=== PATIENT | female | born 1955 | race Caucasian/White ===

== ENCOUNTER 2017-11-28 10:40 | Emergency (ER) | payer OTHER ==
[2017-11-28 10:44] VITALS: BP 148/77
--- NOTE | 2017-11-28 11:51 | ED ---
Andres Barney Stephanie, scribed for Kenan Ruby MD on 11/28/17 at 1112 . Lower Extremity - HPI Summary HPI Summary: The pt is a 62 y/o F presenting to the ED with L knee pain that began post fall at 16:00 yesterday. Symptoms include L knee stiffness, swelling, and pain in the back of the knee. The pt says she feels like she wrenched her knee. - History of Current Complaint Chief Complaint: EDExtremityLower Stated Complaint: FAL LEFT KNEE PAIN Time Seen by Provider: 11/28/17 10:57 Hx Obtained From: Patient Mechanism Of Injury: Fall From A Standing Position Onset of Pain: Post Accident Onset/Duration: Still Present Severity Currently: Mild Pain Intensity: 4 Pain Scale Used: 0-10 Numeric Timing: Constant Associated Signs And Symptoms: Positive: Swelling, Knee Pain - posterior side, Other - L knee stiffness Aggravating Factor(s): Ambulation Alleviating Factor(s): Rest, Elevation, Ice PMH/Surg Hx/FS Hx/Imm Hx Infectious Disease History: No Infectious Disease History: Denies: Traveled Outside the [place] in Last 30 Days - Family History Known Family History: Positive: Unknown - Pt denies family history when asked. - Social History Occupation: Employed Full-time Lives: With Family Review of Systems Negative: Fever Positive: Edema - L knee, Other - Knee stiffness, pain All Other Systems Reviewed And Are Negative: Yes Physical Exam - Summary Physical Exam Summary: Appearance: The patient is well-nourished in no acute distress and in no acute pain. Skin: The skin is warm and dry and skin color reflects adequate perfusion. HEENT: The head is normocephalic and atraumatic. The pupils are equal and reactive. The conjunctivae are clear and without drainage. Nares are patent and without drainage. Mouth reveals moist mucous membranes and the throat is without erythema and exudate. The external ears are intact. The ear canals are patent and without drainage. The tympanic membranes are intact. Neck: the neck is supple with full range of motion and non-tender. There are no carotid bruits. There is no neck vein distension. Respiratory: Chest is non-tender. Lungs are clear to auscultation and breath sounds are symmetrical and equal. Cardiovascular: Heart is regular rate and rhythm. There is no murmur or rub auscultated. There is no peripheral edema and pulses are symmetrical and equal. Abdomen: The abdomen is soft and non-tender. There are normal bowel sounds heard in all four quadrants and there is no organomegaly palpated. Musculoskeletal: There is no back tenderness noted. There is good capillary refill. There is no peripheral edema or calf tenderness elicited. Tender to invert and elmer movement. Nontender to Lachmans test. Nontender to Drawer sign. Nontender Carter sign. Slight ecchymosis on inferior and medial boarder of the knee. Neurological: Patient is alert and oriented to person, place and time. The patient has symmetrical motor strength in all four extremities. Cranial nerves are grossly intact. Deep tendon reflexes are symmetrical and equal in all four extremities. Psychiatric: The patient has an appropriate affect and does not exhibit any anxiety or depression. Triage Information Reviewed: Yes Vital Signs On Initial Exam: Initial Vitals Temp Pulse Resp BP Pulse Ox 97.5 F 87 16 148/77 96 11/28/17 10:41 11/28/17 10:41 11/28/17 10:41 11/28/17 10:41 11/28/17 10:41 Vital Signs Reviewed: Yes Diagnostics - Vital Signs Vital Signs Temp Pulse Resp BP Pulse Ox 11/28/17 10:41 97.5 F 87 16 148/77 96 - Laboratory Lab Statement: Any lab studies that have been ordered have been reviewed, and results considered in the medical decision making process. Lower Extremity Course/Dx - Course Course Of Treatment: Pt is advised to use ibuprofen, wrap the L knee with an catrachito wrap and complete activities as tolerated. Return to the ED if symptoms worsen. Assessment/Plan: Ms. Mcclelland presented a day after falling and twisting her knee. It is a lot better today than yesterday but still bothering her. He exam was remarkable for mild tenderness when stressing her collateral ligaments and not much more. She was advised ice, elevation etc. - Diagnoses Provider Diagnoses: Knee sprain Discharge - Discharge Plan Condition: Stable Disposition: HOME Patient Education Materials: Knee Sprain (ED) Referrals: Cuca Palomo [Primary Care Provider] - The documentation as recorded by the Andres coyle Stephanie accurately reflects the service I personally performed and the decisions made by , Kenan Ruby MD.
== END 2017-11-28 11:21 | disposition home or self-care (01) ==
LOC: ED 10:40
DX: M25.562 Pain in left knee (principal); S83.92XA Sprain of unspecified site of left knee, initial encounter; W19.XXXA Unspecified fall, initial encounter; Y92.9 Unspecified place or not applicable
CPT/HCPCS: 99281

== ENCOUNTER 2019-05-01 19:38 | Emergency (ER) | payer OTHER ==
[2019-05-01] MEDS ORDERED: Propofol* 10 MG/ML 50 ML BTL IV PUSH ONE (20:05)
[2019-05-01] MEDS ORDERED: fentaNYL* 50 MCG/ML 2 ML VIAL (100 MCG VIAL) IV SLOW PU ONE (20:05)
[2019-05-01] MEDS ORDERED: Propofol* 10 MG/ML 20 ML BTL IV PUSH ONE (20:05)
[2019-05-01] MEDS ORDERED: Ondansetron INJ* 2 MG/ML VIAL IV ONE (20:05)
[2019-05-01] MEDS ORDERED: NS 0.9% 1000 ML** 1,000 ML IV ONE (20:05)
--- NOTE | 2019-05-01 20:06 | ED ---
Lower Extremity - HPI Summary HPI Summary: A 63 y/o F presents to ED s/p R hip dislocation onset approx 1829. 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 Patient fell onto her butt. 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 Her R hip was done by Dr. Astorga at [facility] in [place] in 1997. Today is the first time it has dislocated. Patient is not in pain at bedside. She denies CP, SOB, abd pain, LOC. She last ate around lunch time this date. She states that conscious sedation does not work for her, when given Propofol or Fentanyl works well. She is not a heavy drinker. Denies anaesthesia reaction. Patient lives in [place] now, and does not see an orthopedist yet. Allergies: Keflex. - History of Current Complaint Chief Complaint: EDHipPelvisInjury Stated Complaint: RIGHT HIP DISLOCATION PER EMS Time Seen by Provider: 05/01/19 20:00 Hx Obtained From: Patient Onset/Duration: Still Present Severity Currently: None Pain Intensity: 1 Pain Scale Used: 0-10 Numeric Timing: Constant Location: Is Discrete @ - R hip Character Of Pain: Aching Associated Signs And Symptoms: Positive: Other - neg: CP, SOB, LOC. Negative: Abdominal Pain Able to Bear Weight: No - Allergies/Home Medications Allergies/Adverse Reactions: Allergies Allergy/AdvReac Type Severity Reaction Status Date / Time cephalexin [From Keflex] Allergy Rash Verified 05/01/19 19:42 Home Medications: Home Medications Hydrochlorothiazide TAB* [Hydrodiuril TAB*] 25 mg PO DAILY 05/01/19 [History Confirmed 05/01/19] Venlafaxine HCl 75 mg PO BID 05/01/19 [History Confirmed 05/01/19] PMH/Surg Hx/FS Hx/Imm Hx Previously Healthy: No Cardiovascular History: Reports: Hx Hypertension Musculoskeletal History: Reports: Other Musculoskeletal History - hip dysplasia ; multiple hip surgeries Neurological History: Denies: Hx Dementia Infectious Disease History: No Infectious Disease History: Denies: Traveled Outside the [place] in Last 30 Days - Family History Known Family History: Positive: None - Pt denies family history when asked. - Social History Occupation: Unemployed - OTHER Lives: Alone Alcohol Use: Occasionally Hx Substance Use: No Substance Use Type: Reports: None Hx Tobacco Use: No Smoking Status (MU): Never Smoked Tobacco Review of Systems Negative: Chest Pain Negative: Shortness Of Breath Negative: Abdominal Pain Positive: Arthralgia - R hip dislocation Negative: Syncope - neg: LOC All Other Systems Reviewed And Are Negative: Yes Physical Exam - Summary Physical Exam Summary: Appearance: Well appearing, no pain distress Skin: warm, dry, reflects adequate perfusion Head/face: normal Eyes: EOMI, LORI ENT: mucous membranes moist Neck: supple, non-tender Respiratory: CTA, breath sounds present Cardiovascular: RRR, pulses symmetrical Abdomen: non-tender, soft Bowel Sounds: present Musculoskeletal: RLE is shortened and externally rotated; pain with manipulation of leg. Neuro: normal, sensory motor intact, A&Ox3 Triage Information Reviewed: Yes Vital Signs On Initial Exam: Initial Vitals Temp Pulse Resp BP Pulse Ox 98.5 F 72 16 146/83 96 05/01/19 19:39 05/01/19 19:39 05/01/19 19:39 05/01/19 19:39 05/01/19 19:39 Vital Signs Reviewed: Yes Procedures - Procedure Summary Procedure Summary: Procedural sedation: Indication is right prosthetic hip dislocation Description: The patient was formally consented and a timeout was performed. She was placed on full cardiopulmonary monitoring. The patient has been NPO > 8hrs. she was placed on full cardiopulmonary monitoring including end-tidal CO2 and on nasal cannula oxygen. She was given 50 g of fentanyl prior to the procedure for discomfort and then was sedated with 1 mg/kg of IV propofol at 70 mg total. This provided adequate analgesia/anesthesia for a quick reduction. Reduction/sedation time was 1 minute. She tolerated this well and recovered uneventfully without complication. - Joint Reduction R Hip Joint Reduction Site: hip (R) Conscious Sedation: Yes Reduction Attempts: 1 Post Joint Reduction Film: joint reduced Diagnostics - Vital Signs Vital Signs Temp Pulse Resp BP Pulse Ox 05/01/19 19:39 98.5 F 72 16 146/83 96 - Laboratory Lab Statement: Any lab studies that have been ordered have been reviewed, and results considered in the medical decision making process. - Radiology R HIP - POST RED Radiology Interpretation Completed By: ED Physician Summary of Radiographic Findings: Reduction of R prosthetic hip displacement. Lower Extremity Course/Dx - Course Course Of Treatment: Nurse's note reviewed. Reduced hip under sedation quickly. Post reduction film shows adequate reduction. Patient ambulatory without difficulty. - Diagnoses Provider Diagnoses: Dislocation of internal right hip prosthesis, initial encounter Discharge - Sign-Out/Discharge Documenting (check all that apply): Patient Departure Patient Received Moderate/Deep Sedation with Procedure: Yes - Discharge Plan Condition: Improved Disposition: HOME Patient Education Materials: Moderate Sedation (ED), Hip Dislocation (ED) Referrals: Ирина Hess MD [Primary Care Provider] - Additional Instructions: No alcohol or sedating medications. Call on Saturday to follow-up with your orthopedic surgeon. No strenuous activity for 3 days. Tylenol, ibuprofen as needed for discomfort. Return if worse, new symptoms or other concerns. - Billing Disposition and Condition Condition: IMPROVED Disposition: Home - Attestation Statements Document Initiated by Kelsey: Yes Documenting Scribe: Henry Faustin Provider For Whom Leighibe is Documenting (Include Credential): Dr. Ian Oneill MD Scribe Attestation: Henry Barney scribed for Dr. Ian Oneill MD on 05/01/19 at 2150. Scribe Documentation Reviewed: Yes Provider Attestation: The documentation as recorded by the Henry coyle accurately reflects the service I personally performed and the decisions made by , Dr. Ian Oneill MD Status of Scribe Document: Viewed
[2019-05-01] MEDS ORDERED: Propofol* 500 MG/50 ML BTL ONE (20:18)
[2019-05-01 21:18] VITALS: BP 124/86
--- NOTE | 2019-05-02 13:38 | PN ---
Progress Note - Progress Note Date of Service: 05/01/19 Note: Called pt. today at 1335 and discussed results. She notes she recently moved to the area and her orthopedic sx is in [place]. Pt. would like to f.u with ortho. in [facility]. INFO provided and she will call on Saturday for f.u apt. IMPRESSION: 1. STATUS POST REDUCTION OF THE RIGHT FEMORAL PROSTHESES. THE PROSTHESES ARE IN NORMAL ALIGNMENT. 2. THERE IS A FRACTURE OF THE RIGHT ACETABULUM WHICH IS LIKELY CHRONIC. 3. ONE OF THE LEFT ACETABULAR SCREWS HAS BACKED OUT. 4. RECOMMEND ORTHOPEDIC FOLLOW-UP. R3
== END 2019-05-01 21:14 | disposition home or self-care (01) ==
LOC: ED 19:38
DX: T84.020A Dislocation of internal right hip prosthesis, initial encounter (principal); I10 Essential (primary) hypertension; X50.0XXA Overexertion from strenuous movement or load, initial encounter; Y92.9 Unspecified place or not applicable
CPT/HCPCS: 27265; 72170; 96374; 96375; 99284; J2405; J2704; J3010

== ENCOUNTER 2019-05-07 18:35 | Emergency (ER) | payer OTHER ==
--- NOTE | 2019-05-07 19:40 | ED ---
Lower Extremity - HPI Summary HPI Summary: This patient is a 63 year old F brought in by EMS to [facility] with a chief complaint of a possible R hip dislocation while walking her dog. She states that she has had her hip replaced on Saturday05/01/19. She was aware and was attempting to be careful while walking her dog. She has a follow up with an Orthopedic on 05/18/19. Pt is able to move her legs but has pain with ROM. She rates the pain a 2/10 in severity. She stated that walking and weight bearing. She denies any numbness or tingling in her extremities. - History of Current Complaint Chief Complaint: EDHipPelvisInjury Stated Complaint: RIGHT HIP DISLOCATION PER EMS Time Seen by Provider: 05/07/19 19:19 Hx Obtained From: Patient Mechanism Of Injury: Other - walking her dog Onset of Pain: Immediate Onset/Duration: Hours Severity Initially: Mild Severity Currently: Mild Pain Intensity: 2 Pain Scale Used: 0-10 Numeric Timing: Constant Location: Other - R hip Associated Signs And Symptoms: Positive: Weakness, Other - Pain increased with weightbearing and movement, Decreased ROM Aggravating Factor(s): Movement, Weight Bearing Alleviating Factor(s): Rest Related History: Other - Hx 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 in her L hip, Hx of Hip replacement surgery - Allergies/Home Medications Allergies/Adverse Reactions: Allergies Allergy/AdvReac Type Severity Reaction Status Date / Time cephalexin [From Keflex] Allergy Rash Verified 05/01/19 19:42 PMH/Surg Hx/FS Hx/Imm Hx Previously Healthy: No Cardiovascular History: Reports: Hx Hypertension Musculoskeletal History: Reports: Other Musculoskeletal History - hip dysplasia ; multiple hip surgeries Neurological History: Denies: Hx Dementia Infectious Disease History: No Infectious Disease History: Denies: Traveled Outside the [place] in Last 30 Days - Family History Known Family History: Negative: Hypertension, Diabetes - Social History Alcohol Use: Occasionally Hx Substance Use: No Substance Use Type: Reports: None Hx Tobacco Use: No Smoking Status (MU): Former Smoker Review of Systems Positive: Decreased ROM, Other - R hip pain, Increased pain with ROM and weightbearing Positive: Weakness - R hip All Other Systems Reviewed And Are Negative: Yes Physical Exam - Summary Physical Exam Summary: VITAL SIGNS: Reviewed. GENERAL: Patient is a well-developed and nourished female who is lying comfortable in the stretcher. Patient is not in any acute respiratory distress. HEAD AND FACE: No signs of trauma. No ecchymosis, hematomas or skull depressions. No sinus tenderness. EYES: PERRLA, EOMI x 2, No injected conjunctiva, no nystagmus. EARS: Hearing grossly intact. Ear canals and tympanic membranes are within normal limits. MOUTH: Oropharynx within normal limits. NECK: Supple, trachea is midline, no adenopathy, no JVD, no carotid bruit, no c- spine tenderness, neck with full ROM CHEST: Symmetric, no tenderness at palpation LUNGS: Clear to auscultation bilaterally. No wheezing or crackles. CVS: Regular rate and rhythm, S1 and S2 present, no murmurs or gallops appreciated. ABDOMEN: Soft, non-tender. No signs of distention. No rebound no guarding, and no masses palpated. Bowel sounds are normal. EXTREMITIES: Mild shortening of the RLE, external rotation of the RLE, no edema , no cyanosis or clubbing. NEURO: Alert and oriented x 3. No acute neurological deficits. Speech is normal and follows commands. SKIN: Dry and warm Triage Information Reviewed: Yes Vital Signs On Initial Exam: Initial Vitals Pulse BP Pulse Ox 79 167/103 90 05/07/19 18:41 05/07/19 18:41 05/07/19 18:41 Vital Signs Reviewed: Yes Procedures - Joint Reduction Right Joint Reduction Site: hip (R) Conscious Sedation: No Reduction Attempts: 1 Post Joint Reduction Film: Pt will receive another hip x-ray to confirm the reduction. Diagnostics - Vital Signs Vital Signs Temp Pulse Resp BP Pulse Ox 05/07/19 18:43 70 94 05/07/19 18:42 98.8 F 72 18 167/103 95 05/07/19 18:41 79 167/103 90 - Laboratory Lab Statement: Any lab studies that have been ordered have been reviewed, and results considered in the medical decision making process. - Radiology R hip X-Ray Radiology Interpretation Completed By: ED Physician Summary of Radiographic Findings: Superior dislocation of the R hip. Pending offical review. R Hip X-Ray post reduction Radiology Interpretation Completed By: ED Physician Summary of Radiographic Findings: Post-reduction hip X-Ray found the hip had been successfully reduced and she suffers from no hip Fx. Pending offical review. Re-Evaluation - Re-Evaluation First Eval Re-Evaluation Time: 21:00 Change: Unchanged Comment: hip reduced Second Eval Re-Evaluation Time: 21:45 Change: Improved Comment: Pt was informed of her new hip x-ray post reduction and discharged home with a knee mobilizer and instructions to follow up with her orthopedic at her next appointment. Lower Extremity Course/Dx - Course Course Of Treatment: This patient is a 63 year old F brought in by EMS to [facility] with a chief complaint of a possible R hip dislocation while walking her dog. She states that she has had her hip replaced on Saturday05/01/19. Upon her PE she was found to exhibit Mild shortening of the RLE and external rotation of the RLE. She received a R hip X-Ray which shows superior dislocation of the R hip. The pt was informed of the findings and given a reduction treatment without complications. She received another X-Ray to view the effects of the treatment which found the hip had been successfully reduced and she suffered no Hip Fx. The pt will be discharged home with a knee mobilizer and instructed to follow up with her orthopedic at her next scheduled appointment and to return to the ED with any new or worsening symptoms. - Diagnoses Provider Diagnoses: Dislocation of right hip Discharge - Sign-Out/Discharge Documenting (check all that apply): Patient Departure - discharge Patient Received Moderate/Deep Sedation with Procedure: No - Discharge Plan Condition: Stable Disposition: HOME Patient Education Materials: Hip Dislocation (ED) Referrals: Ирина Hess MD [Primary Care Provider] - Additional Instructions: Wear knee mobilizer and follow up with your orthopedic at your next appointment. Please return to the emergency department with any new or worsening symptoms. - Attestation Statements Document Initiated by Scribe: Yes Documenting Scribe: Lyndon Easton Provider For Whom Kelsey is Documenting (Include Credential): Ngozi Hawley MD Scribe Attestation: Lyndon Barney, pramodibed for Ngozi Hawley MD on 05/07/19 at 8314. Status of Scribe Document: Ready
[2019-05-07] MEDS ORDERED: Propofol* 10 MG/ML 20 ML BTL IV PUSH ONE (20:29)
[2019-05-07] MEDS ORDERED: Propofol* 500 MG/50 ML BTL ONE (20:43)
--- NOTE | 2019-05-07 20:54 | ED ---
Progress - Progress Note Progress Note: I was asked to come to the bedside by Dr. Sharma to provide procedural sedation. PROCEDURE NOTE PROCEDURE NAME: PROCEDURAL SEDATION INDICATION: HIP DISLOCATION SEDATION PROVIDER: ANIKA DIAZ MD PROCEDURALIST: DR SHARMA DETAILS: I screened the patient including physical exam including heart and lung exam, also airway examination. She had no contraindications to emergency department procedural sedation. I reviewed the medical record, she successfully had propofol sedation last week. She received a total of 100 mg of IV propofol for adequate procedural sedation. She emerged uneventfully from sedation. Dr. Sharma's reduction was successful. Re-Evaluation - Re-Evaluation First Eval Re-Evaluation Time: 21:00 Change: Unchanged Comment: hip reduced Second Eval Re-Evaluation Time: 21:45 Change: Improved Comment: Pt was informed of her new hip x-ray post reduction and discharged home with a knee mobilizer and instructions to follow up with her orthopedic at her next appointment. Course/Dx - Course Course Of Treatment: This patient is a 63 year old F brought in by EMS to [facility] with a chief complaint of a possible R hip dislocation while walking her dog. She states that she has had her hip replaced on Saturday05/01/19. Upon her PE she was found to exhibit Mild shortening of the RLE and external rotation of the RLE. She received a R hip X-Ray which shows superior dislocation of the R hip. The pt was informed of the findings and given a - Diagnoses Provider Diagnoses: Dislocation of right hip Discharge - Sign-Out/Discharge Documenting (check all that apply): Patient Departure Patient Received Moderate/Deep Sedation with Procedure: Yes - Discharge Plan Condition: Stable Disposition: HOME Patient Education Materials: Hip Dislocation (ED) Referrals: Ирина Hess MD [Primary Care Provider] - Additional Instructions: Wear knee mobilizer and follow up with your orthopedic at your next appointment. Please return to the emergency department with any new or worsening symptoms. - Billing Disposition and Condition Condition: STABLE Disposition: Home
[2019-05-07 21:59] VITALS: BP 131/79
== END 2019-05-07 22:15 | disposition home or self-care (01) ==
LOC: ED 18:35
DX: T84.020A Dislocation of internal right hip prosthesis, initial encounter (principal); M84.454A Pathological fracture, pelvis, initial encounter for fracture; Z88.1 Allergy status to other antibiotic agents; Z87.891 Personal history of nicotine dependence
CPT/HCPCS: 27252; 99156; 99283; J2704

== ENCOUNTER 2019-05-13 19:58 | Emergency (ER) | payer OTHER ==
--- NOTE | 2019-05-13 20:23 | ED ---
Lower Extremity - HPI Summary HPI Summary: A 63 y/o female brought in [facility] presents to [facility] with a chief complaint of possibly "dislocating her right hip" pain post fall today. She reports that she hit her head but denies LOC. 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 She reports seeing tai Loomis, who reportedly ordered CTs for the patient. The patient reports that she took off her brace today in order to drive. She took Advil this morning but denies taking Coumadin. She last ate at 17:00 today. - History of Current Complaint Chief Complaint: EDExtremityLower Stated Complaint: FALL PER EMS Time Seen by Provider: 05/13/19 20:10 Hx Obtained From: Patient, EMS Mechanism Of Injury: Fall From A Standing Position Onset of Pain: Immediate, Post Accident, Prior to Arrival Onset/Duration: Still Present Severity Initially: Mild Severity Currently: None Pain Intensity: 0 Pain Scale Used: 0-10 Numeric Timing: Constant, Lasting Minutes Location: Is Discrete @ - right thigh Character Of Pain: Unable To Describe Associated Signs And Symptoms: Negative: Fever Aggravating Factor(s): Nothing Alleviating Factor(s): Nothing - Allergies/Home Medications Allergies/Adverse Reactions: Allergies Allergy/AdvReac Type Severity Reaction Status Date / Time cephalexin [From Keflex] Allergy Rash Verified 05/01/19 19:42 PMH/Surg Hx/FS Hx/Imm Hx Cardiovascular History: Reports: Hx Hypertension Musculoskeletal History: Reports: Other Musculoskeletal History - hip dysplasia ; multiple hip surgeries Neurological History: Denies: Hx Dementia Infectious Disease History: No Infectious Disease History: Denies: Traveled Outside the US in Last 30 Days - Family History Known Family History: Positive: Unknown - Pt denies family history when asked. Negative: Hypertension, Diabetes - Social History Alcohol Use: Occasionally Hx Substance Use: No Substance Use Type: Reports: None Hx Tobacco Use: No Smoking Status (MU): Former Smoker Review of Systems Negative: Fever Positive: Other - positive: possibly dislocating right hip post fall today All Other Systems Reviewed And Are Negative: Yes Physical Exam - Summary Physical Exam Summary: VITAL SIGNS: Reviewed. GENERAL: Patient is a well-developed and nourished FEMALE who is lying comfortable in the stretcher. Patient is not in any acute respiratory distress. HEAD AND FACE: No signs of trauma. No ecchymosis, hematomas or skull depressions. No sinus tenderness. EYES: PERRLA, EOMI x 2, No injected conjunctiva, no nystagmus. EARS: Hearing grossly intact. Ear canals and tympanic membranes are within normal limits. MOUTH: Oropharynx within normal limits. NECK: Supple, trachea is midline, no adenopathy, no JVD, no carotid bruit, no c- spine tenderness, neck with full ROM CHEST: Symmetric, no tenderness at palpation LUNGS: Clear to auscultation bilaterally. No wheezing or crackles. CVS: Regular rate and rhythm, S1 and S2 present, no murmurs or gallops appreciated. ABDOMEN: Soft, non-tender. No signs of distention. No rebound no guarding, and no masses palpated. Bowel sounds are normal. EXTREMITIES: RLE is short and externally rotated. NEURO: Alert and oriented x 3. No acute neurological deficits. Speech is normal and follows commands. SKIN: Dry and warm Triage Information Reviewed: Yes Vital Signs On Initial Exam: Initial Vitals Temp Pulse Resp BP Pulse Ox 98.0 F 76 18 149/99 99 05/13/19 20:04 05/13/19 20:04 05/13/19 20:04 05/13/19 20:04 05/13/19 20:04 Vital Signs Reviewed: Yes Procedures - Procedure Summary Procedure Summary: Moderate sedation procedure: Pt consent given. Followed protocol Pt was given Fentanyl 100mcg and Versed 5mg moderate sedation accomplished Vital signs were fine, no reversal agent used, procedure length 15 min. Right hip reduction procedure: Right hip reduction under moderate sedation right hip reduced neurovascularly intact pre and post reduction Diagnostics - Vital Signs Vital Signs Temp Pulse Resp BP Pulse Ox 05/13/19 20:04 98.0 F 76 18 149/99 99 - Laboratory Lab Statement: Any lab studies that have been ordered have been reviewed, and results considered in the medical decision making process. - Radiology Hip/pelvis x-ray Radiology Interpretation Completed By: ED Physician Summary of Radiographic Findings: Superior dislocation of right hip. Pending official imaging report. hip x-ray Radiology Interpretation Completed By: ED Physician Summary of Radiographic Findings: Post reduction, good alignment, no fracture. Pending official imaging report. Re-Evaluation - Re-Evaluation First Eval Re-Evaluation Time: 21:17 Lower Extremity Course/Dx - Course Course Of Treatment: A 63 y/o female brought in by [facility] ambulance presents to [facility] with a chief complaint of possibly "dislocating her right hip" pain post fall today. The physical exam revealed RLE is short and externally rotated. Hip/ pelvis x-ray showed Superior dislocation of right hip. Right hip reduction procedure performed under moderate sedation (100mcg Fentanyl and 5mg Versed). Hip x-ray showed Post reduction, good alignment, no fracture. The patient will be discharged and follow up with her PCP and tai Loomis. The patient is agreeable with this plan. - Diagnoses Provider Diagnoses: Dislocation, hip Discharge - Sign-Out/Discharge Documenting (check all that apply): Patient Departure - DC Patient Received Moderate/Deep Sedation with Procedure: Yes - Discharge Plan Condition: Stable Disposition: HOME Patient Education Materials: Moderate Sedation (ED), Hip Dislocation (ED) Referrals: Ирина Hess MD [Primary Care Provider] - (2-3 days) Sophia Valles MD [Medical Doctor] - Additional Instructions: Please wear your knee immobilizer. PLEASE RETURN TO THE ED IMMEDIATELY FOR WORSENING OR CONCERNING SYMPTOMS. - Billing Disposition and Condition Condition: STABLE Disposition: Home - Attestation Statements Document Initiated by Scribe: Yes Documenting Scribe: Ken Estevez Provider For Whom Kelsey is Documenting (Include Credential): Ngozi Hawley MD Scribe Attestation: Ken Barney, scribed for Ngzoi Hawley MD on 05/14/19 at 0638. Scribe Documentation Reviewed: Yes Provider Attestation: The documentation as recorded by the Ken coyle accurately reflects the service I personally performed and the decisions made by , Ngozi Hawley MD Status of Scribe Document: Viewed
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
[2019-05-13] MEDS ORDERED: Midazolam* 1 MG/ML 5 ML VIAL (5 MG) IV SLOW PU ONE (20:49)
[2019-05-13] MEDS ORDERED: NS 0.9% 1000 ML** 1,000 ML IV ONE (20:49)
[2019-05-13] MEDS ORDERED: fentaNYL* 50 MCG/ML 2 ML VIAL (100 MCG VIAL) IV SLOW PU ONE (20:49)
[2019-05-13 21:40] VITALS: BP 104/69
== END 2019-05-13 22:01 | disposition home or self-care (01) ==
LOC: ED 19:58
DX: T84.020A Dislocation of internal right hip prosthesis, initial encounter (principal); W19.XXXA Unspecified fall, initial encounter; Y92.9 Unspecified place or not applicable; M84.454D Pathological fracture, pelvis, subsequent encounter for fracture with routine healing; Z88.1 Allergy status to other antibiotic agents; Z87.891 Personal history of nicotine dependence
CPT/HCPCS: 27252; 99156; 99285; J2250; J3010

== ENCOUNTER 2019-05-17 16:10 | Emergency (ER) | payer OTHER ==
[2019-05-17] MEDS ORDERED: fentaNYL* 50 MCG/ML 2 ML VIAL (100 MCG VIAL) IV ONE (20:03)
[2019-05-17] MEDS ORDERED: fentaNYL* 50 MCG/ML 2 ML VIAL (100 MCG VIAL) IV SLOW PU ONE (20:04)
--- NOTE | 2019-05-17 20:20 | ED ---
Lower Extremity - HPI Summary HPI Summary: Patient with history of recurrent right hip this location complains of possible recurrence after pivoting on her right leg. Denies pain, just states she heard a pop, and it feels funny. Denies any other pain, injury or symptoms. - History of Current Complaint Chief Complaint: EDHipPelvisInjury Stated Complaint: RT HIP DISLOCATION PER EMS Time Seen by Provider: 05/17/19 17:37 Hx Obtained From: Patient Mechanism Of Injury: Twisted Severity Currently: None Pain Intensity: 0 Pain Scale Used: 0-10 Numeric Able to Bear Weight: No - Allergies/Home Medications Allergies/Adverse Reactions: Allergies Allergy/AdvReac Type Severity Reaction Status Date / Time cephalexin [From Keflex] Allergy Rash Verified 05/17/19 16:19 PMH/Surg Hx/FS Hx/Imm Hx Endocrine/Hematology History: Denies: Hx Anticoagulant Therapy Cardiovascular History: Reports: Hx Hypertension History: Denies: Hx Dialysis Musculoskeletal History: Reports: Other Musculoskeletal History - hip dysplasia ; multiple hip surgeries Sensory History: Denies: Hx Eye Prosthesis Opthamlomology History: Denies: Hx Legally Blind EENT History: Denies: Hx Deafness Neurological History: Denies: Hx Dementia Psychiatric History: Denies: Hx Autism Infectious Disease History: No Infectious Disease History: Denies: Traveled Outside the US in Last 30 Days - Family History Known Family History: Positive: None - Pt denies family history when asked., Unknown - Pt denies family history when asked. Negative: Hypertension, Diabetes - Social History Alcohol Use: Occasionally Hx Substance Use: No Substance Use Type: Reports: None Hx Tobacco Use: No Smoking Status (MU): Former Smoker Review of Systems Constitutional: Negative Eyes: Negative ENT: Negative Cardiovascular: Negative Respiratory: Negative Gastrointestinal: Negative Genitourinary: Negative Musculoskeletal: Other Skin: Negative Neurological: Negative Psychological: Normal All Other Systems Reviewed And Are Negative: Yes Physical Exam - Summary Physical Exam Summary: Right lower extremity externally rotated, same length as left lower extremity. Apparent deformity to right hip. Triage Information Reviewed: Yes Vital Signs On Initial Exam: Initial Vitals Pulse Resp Pulse Ox 76 20 97 05/17/19 16:14 05/17/19 16:14 05/17/19 16:14 Vital Signs Reviewed: Yes Appearance: Positive: Well-Appearing Skin: Positive: Warm Head/Face: Positive: Normal Head/Face Inspection Eyes: Positive: Normal Neck: Positive: Supple Respiratory/Lung Sounds: Positive: Clear to Auscultation Cardiovascular: Positive: Normal Abdomen Description: Positive: Nontender Musculoskeletal: Positive: Normal Neurological: Positive: Normal Psychiatric: Positive: Normal AVPU Assessment: Alert - [place] Coma Scale Best Eye Response: 4 - Spontaneous Best Motor Response: 6 - Obeys Commands Best Verbal Response: 5 - Oriented Coma Scale Total: 15 Diagnostics - Vital Signs Vital Signs Temp Pulse Resp BP Pulse Ox 05/17/19 20:16 16 05/17/19 17:00 24 05/17/19 16:45 76 18 136/99 98 05/17/19 16:16 72 20 96 05/17/19 16:15 98.7 F 76 16 141/90 96 05/17/19 16:14 76 20 97 - Laboratory Lab Statement: Any lab studies that have been ordered have been reviewed, and results considered in the medical decision making process. Lower Extremity Course/Dx - Course Course Of Treatment: Patient with history of recurrent right hip this location complains of possible recurrence after pivoting on her right leg. Denies pain, just states she heard a pop, and it feels funny. Denies any other pain, injury or symptoms. Physical exam:Right lower extremity externally rotated, same length as left lower extremity. Apparent deformity to right hip. Vital signs within normal limits. X-ray confirms right hip dislocation. Right hip reduced by Dr. Hawley with 100 mcg of fentanyl. Patient refused post reduction x-ray. Patient has orthopedist in [place]. Advised to follow-up with orthopedic surgeon. Patient understands and approves of plan. - Diagnoses Provider Diagnoses: Hip dislocation, right Discharge - Sign-Out/Discharge Documenting (check all that apply): Patient Departure Patient Received Moderate/Deep Sedation with Procedure: No - Discharge Plan Condition: Stable Disposition: HOME Patient Education Materials: Hip Dislocation (ED) Referrals: Ирина Hess MD [Primary Care Provider] - Ish Wilson MD [Medical Doctor] - Additional Instructions: Follow-up with your orthopedic surgeon or with Dr. Wilson for further evaluation of recurrent hip dislocation. - Billing Disposition and Condition Condition: STABLE Disposition: Home
[2019-05-17 20:46] VITALS: BP 127/84
== END 2019-05-17 20:45 | disposition home or self-care (01) ==
LOC: ED 16:10
DX: S73.004A Unspecified dislocation of right hip, initial encounter (principal); M97.01XA Periprosthetic fracture around internal prosthetic right hip joint, initial encounter; X50.9XXA Other and unspecified overexertion or strenuous movements or postures, initial encounter; Z87.891 Personal history of nicotine dependence; Z96.641 Presence of right artificial hip joint
CPT/HCPCS: 96374; 96375; 99282; J3010

== ENCOUNTER 2019-05-26 12:30 | Emergency (ER) | payer OTHER ==
[2019-05-26] MEDS ORDERED: fentaNYL* 50 MCG/ML 2 ML VIAL (100 MCG VIAL) IV SLOW PU ONE (14:44)
[2019-05-26 15:10] VITALS: BP 141/91
--- NOTE | 2019-06-01 07:06 | ED ---
Lower Extremity - HPI Summary HPI Summary: Patient is a 63-year-old female presenting to the ED with a right hip dislocation. She endorses this is her fifth hip dislocation, total. This is her third dislocation to the right side. She is status post hip replacement several years ago. She states she is followed by an orthopedic physician, however has not been able to get in with them until 2 weeks from now. She states last tetanus occurred approximately 2 weeks ago, they were able to reduce this with a small dose of fentanyl. She is endorsing mild amount of pain. She states she was doing the dishes and just stepped on this wrong which caused the hip to displace. She denies any other concerns complaints. Denies any numbness or tingling, color temperature changes to the ipsilateral leg. - History of Current Complaint Chief Complaint: EDExtremityLower Stated Complaint: RIGHT HIP PAIN PER PT Time Seen by Provider: 05/26/19 12:39 Hx Obtained From: Patient Mechanism Of Injury: Unknown Onset of Pain: Minutes Onset/Duration: Minutes Severity Initially: Mild Severity Currently: Mild Pain Intensity: 0 Pain Scale Used: 0-10 Numeric Timing: Constant Location: Is Discrete @ - right hip Character Of Pain: Aching Associated Signs And Symptoms: Negative: Swelling, Redness, Bruising Aggravating Factor(s): Standing, Ambulation, Movement, Weight Bearing Able to Bear Weight: No - Risk Factors Gout Risk Factors: Negative DVT Risk Factors: Negative Septic Arthritis Risk Factor: Negative - Allergies/Home Medications Allergies/Adverse Reactions: Allergies Allergy/AdvReac Type Severity Reaction Status Date / Time cephalexin [From Keflex] Allergy Rash Verified 05/26/19 12:36 PMH/Surg Hx/FS Hx/Imm Hx Previously Healthy: Yes Endocrine/Hematology History: Denies: Hx Anticoagulant Therapy Cardiovascular History: Reports: Hx Hypertension History: Denies: Hx Dialysis Musculoskeletal History: Reports: Other Musculoskeletal History - hip dysplasia ; multiple hip surgeries Sensory History: Denies: Hx Eye Prosthesis, Hx Legally Blind, Hx Deafness Opthamlomology History: Denies: Hx Eye Prosthesis, Hx Legally Blind Neurological History: Denies: Hx Dementia Psychiatric History: Denies: Hx Autism - Surgical History Surgery Procedure, Year, and Place: BILAT HIP REPLACEMENTS - Immunization History Hx Pertussis Vaccination: No Immunizations Up to Date: Yes Infectious Disease History: No Infectious Disease History: Denies: Traveled Outside the [place] in Last 30 Days - Family History Known Family History: Positive: None - Pt denies family history when asked., Unknown - Pt denies family history when asked. Negative: Hypertension, Diabetes - Social History Occupation: Unemployed Lives: With Family Alcohol Use: Occasionally Hx Substance Use: No Substance Use Type: Reports: None Hx Tobacco Use: No Smoking Status (MU): Former Smoker Review of Systems Negative: Fever, Chills, Fatigue, Skin Diaphoresis Negative: Palpitations, Chest Pain Negative: Shortness Of Breath, Cough Genitourinary: Negative Positive: no symptoms reported, see HPI Positive: Arthralgia - right hip dislocation. Negative: Myalgia Skin: Negative Neurological: Negative All Other Systems Reviewed And Are Negative: Yes Physical Exam Triage Information Reviewed: Yes Vital Signs On Initial Exam: Initial Vitals Temp Pulse Resp BP Pulse Ox 98.3 F 68 16 154/89 95 05/26/19 12:33 05/26/19 12:33 05/26/19 12:33 05/26/19 12:33 05/26/19 12:33 Vital Signs Reviewed: Yes Appearance: Positive: Well-Appearing, Well-Nourished Skin: Positive: Skin Color Reflects Adequate Perfusion Head/Face: Positive: Normal Head/Face Inspection Eyes: Positive: EOMI, Conjunctiva Clear Neck: Positive: Supple Respiratory/Lung Sounds: Positive: Clear to Auscultation, Breath Sounds Present Cardiovascular: Positive: RRR, Pulses are Symmetrical in both Upper and Lower Extremities Musculoskeletal: Positive: Pain @ - right hip - obvious dislocation Neurological: Positive: Alert, Oriented to Person Place, Time, Speech Normal Psychiatric: Positive: Affect/Mood Appropriate Diagnostics - Vital Signs Vital Signs Temp Pulse Resp BP Pulse Ox 05/26/19 15:15 98 F 69 16 141/91 100 05/26/19 15:08 141/91 05/26/19 15:00 69 100 05/26/19 14:57 18 05/26/19 14:52 75 97 05/26/19 13:06 70 142/84 97 05/26/19 13:00 69 97 05/26/19 12:38 68 95 05/26/19 12:36 68 154/89 96 05/26/19 12:33 98.3 F 68 16 154/89 95 - Laboratory Lab Statement: Any lab studies that have been ordered have been reviewed, and results considered in the medical decision making process. Lower Extremity Course/Dx - Course Course Of Treatment: During this course treatment, the patient's evaluated for right hip dislocation. X-ray obtained which shows dislocation of the right hip. Fentanyl 50 mg given. Traction to the right foot with a pole and this reduced the hip. This was confirmed by patient and the ability to flex and extend at the hip. She is declining follow-up x-ray. She will continue to f/u with her ortho in [place]. - Diagnoses Provider Diagnoses: Hip dislocation, right Discharge - Sign-Out/Discharge Documenting (check all that apply): Patient Departure Patient Received Moderate/Deep Sedation with Procedure: No - Discharge Plan Condition: Stable Disposition: HOME Referrals: Ирина Hess MD [Primary Care Provider] - Additional Instructions: Please follow up with orthopedics - Billing Disposition and Condition Condition: STABLE Disposition: Home
== END 2019-05-26 15:15 | disposition home or self-care (01) ==
LOC: ED 12:30
DX: S73.004A Unspecified dislocation of right hip, initial encounter (principal); X50.9XXA Other and unspecified overexertion or strenuous movements or postures, initial encounter; Y93.G1 Activity, food preparation and clean up; I10 Essential (primary) hypertension; Z96.643 Presence of artificial hip joint, bilateral; Z88.1 Allergy status to other antibiotic agents; Z87.891 Personal history of nicotine dependence
CPT/HCPCS: 27265; 96374; 99282; J3010

== ENCOUNTER 2020-02-01 13:09 | Emergency (ER) | payer OTHER ==
--- NOTE | 2020-02-01 13:15 | ED ---
Lower Extremity - HPI Summary HPI Summary: Patient is a 64 y/o F presenting to the ED via EMS for a chief complaint of right hip dislocation that occurred on 02/01/20. Patient has a history of dislocations in the same hip, having had 19 dislocations of the right hip prior to this current dislocation. - History of Current Complaint Stated Complaint: R HIP DISLOCATION PER EMS Time Seen by Provider: 02/01/20 13:11 Hx Obtained From: Patient Severity Initially: Mild Severity Currently: None Pain Intensity: 0 Pain Scale Used: 0-10 Numeric Timing: Constant Location: Is Discrete @ - Right hip - Allergies/Home Medications Allergies/Adverse Reactions: Allergies Allergy/AdvReac Type Severity Reaction Status Date / Time cephalexin [From Keflex] Allergy Rash Verified 05/26/19 12:36 Home Medications: Home Medications Hydrochlorothiazide TAB* [Hydrodiuril TAB*] 25 mg PO DAILY 05/01/19 [History Confirmed 05/26/19] Venlafaxine HCl 75 mg PO BID 05/01/19 [History Confirmed 05/26/19] PMH/Surg Hx/FS Hx/Imm Hx Previously Healthy: Yes Endocrine/Hematology History: Denies: Hx Anticoagulant Therapy Cardiovascular History: Reports: Hx Hypertension History: Denies: Hx Dialysis Musculoskeletal History: Reports: Other Musculoskeletal History - hip dysplasia ; multiple hip surgeries Sensory History: Denies: Hx Eye Prosthesis, Hx Legally Blind Opthamlomology History: Denies: Hx Eye Prosthesis, Hx Legally Blind Neurological History: Denies: Hx Dementia Psychiatric History: Denies: Hx Autism - Surgical History Surgery Procedure, Year, and Place: BILAT HIP REPLACEMENTS Infectious Disease History: No Infectious Disease History: Denies: Traveled Outside the [place] in Last 30 Days - Family History Known Family History: Positive: None - Pt denies family history when asked., Unknown - Pt denies family history when asked. Negative: Hypertension, Diabetes - Social History Alcohol Use: Occasionally Hx Substance Use: No Substance Use Type: Reports: None Hx Tobacco Use: No Smoking Status (MU): Former Smoker Review of Systems All Other Systems Reviewed And Are Negative: Yes Physical Exam Triage Information Reviewed: Yes Vital Signs On Initial Exam: Initial Vitals Temp Pulse Resp BP Pulse Ox 97.6 F 69 16 140/84 98 02/01/20 13:11 02/01/20 13:11 02/01/20 13:11 02/01/20 13:11 02/01/20 13:11 Vital Signs Reviewed: Yes Procedures - Sedation Patient Received Moderate/Deep Sedation with Procedure: No Diagnostics - Vital Signs Vital Signs Temp Pulse Resp BP Pulse Ox 02/01/20 13:11 97.6 F 69 16 140/84 98 - Laboratory Lab Statement: Any lab studies that have been ordered have been reviewed, and results considered in the medical decision making process. Discharge ED - Discharge Plan Referrals: Ирина Hess MD [Primary Care Provider] - - Attestation Statements Document Initiated by Scribe: Yes Documenting Scribe: Soila Arias Provider For Whom Scribe is Documenting (Include Credential): Kenan Ruby MD Scribe Attestation: Soila Barney, scribed for Kenan Ruby MD on 02/01/20 at 1314.
[2020-02-01] MEDS ORDERED: fentaNYL* 50 MCG/ML 2 ML VIAL (100 MCG VIAL) IV SLOW PU ONE (13:47)
[2020-02-01 14:37] VITALS: BP 139/87
--- NOTE | 2020-02-13 06:16 | ED ---
Lower Extremity - HPI Summary HPI Summary: Patient is a 64-year-old female presented to the ED with a possible right hip dislocation. She states this is her sixth hip dislocation total. This is her fourth dislocation to the right side. She has seen a specialist in [place], who "realized" the hip to make the ligaments stronger to prevent further dislocations. She states this was 6 or 7 months ago and states since that time has not had another dislocation. She states she is usually able to get her neighbors to apply traction to the leg which will reduce the hip. She states they tried this at home, however was unable to reduce it. Her previous dislocation in which she was seen in the emergency room was able to be reduced with a small dose of fentanyl. She is requesting this again. She denies any pain. She states this occurred when trying to put on shorts. She did not fall or cause any other injuries. Denies any numbness or tingling. Denies any color or temperature changes. - History of Current Complaint Chief Complaint: EDHipPelvisInjury Stated Complaint: R HIP DISLOCATION PER EMS Time Seen by Provider: 02/01/20 13:11 Hx Obtained From: Patient Mechanism Of Injury: Twisted Pain Intensity: 0 Pain Scale Used: 0-10 Numeric Timing: Constant Location: Is Discrete @ - right hip Aggravating Factor(s): Standing, Ambulation Able to Bear Weight: No - Allergies/Home Medications Allergies/Adverse Reactions: Allergies Allergy/AdvReac Type Severity Reaction Status Date / Time cephalexin [From Keflex] Allergy Rash Verified 05/26/19 12:36 Home Medications: Home Medications Hydrochlorothiazide TAB* [Hydrodiuril TAB*] 25 mg PO DAILY 05/01/19 [History Confirmed 05/26/19] Venlafaxine HCl 75 mg PO BID 05/01/19 [History Confirmed 05/26/19] PMH/Surg Hx/FS Hx/Imm Hx Previously Healthy: Yes Endocrine/Hematology History: Denies: Hx Anticoagulant Therapy Cardiovascular History: Reports: Hx Hypertension History: Denies: Hx Dialysis Musculoskeletal History: Reports: Other Musculoskeletal History - hip dysplasia ; multiple hip surgeries Sensory History: Denies: Hx Eye Prosthesis, Hx Legally Blind Opthamlomology History: Denies: Hx Eye Prosthesis, Hx Legally Blind Neurological History: Denies: Hx Dementia Psychiatric History: Denies: Hx Autism - Surgical History Surgery Procedure, Year, and Place: BILAT HIP REPLACEMENTS - Immunization History Hx Pertussis Vaccination: No Immunizations Up to Date: Yes Infectious Disease History: No Infectious Disease History: Denies: Traveled Outside the [place] in Last 30 Days - Family History Known Family History: Positive: None - Pt denies family history when asked., Unknown - Pt denies family history when asked. Negative: Hypertension, Diabetes - Social History Occupation: Unemployed Lives: Alone Alcohol Use: Occasionally Hx Substance Use: No Substance Use Type: Reports: None Hx Tobacco Use: No Smoking Status (MU): Former Smoker Review of Systems Negative: Fever, Chills, Fatigue, Skin Diaphoresis Negative: Palpitations, Chest Pain Negative: Shortness Of Breath, Cough Genitourinary: Negative Positive: no symptoms reported Positive: Other - right hip dislocation. Negative: Arthralgia, Myalgia Negative: Rash, Bruising Neurological/Mental Status: Negative All Other Systems Reviewed And Are Negative: Yes Physical Exam Triage Information Reviewed: Yes Vital Signs On Initial Exam: Initial Vitals Temp Pulse Resp BP Pulse Ox 97.6 F 69 16 140/84 98 02/01/20 13:11 02/01/20 13:11 02/01/20 13:11 02/01/20 13:11 02/01/20 13:11 Vital Signs Reviewed: Yes Appearance: Positive: Well-Appearing, Well-Nourished Skin: Positive: Warm, Skin Color Reflects Adequate Perfusion Head/Face: Positive: Normal Head/Face Inspection Eyes: Positive: EOMI, LORI, Conjunctiva Clear Neck: Positive: Supple, No Lymphadenopathy Respiratory/Lung Sounds: Positive: Clear to Auscultation, Breath Sounds Present Cardiovascular: Positive: RRR, Pulses are Symmetrical in both Upper and Lower Extremities Musculoskeletal: Positive: Other - right leg externally rotated and shortened Neurological: Positive: Speech Normal Psychiatric: Positive: Affect/Mood Appropriate AVPU Assessment: Alert Procedures - Sedation Patient Received Moderate/Deep Sedation with Procedure: No Diagnostics - Vital Signs Vital Signs Temp Pulse Resp BP Pulse Ox 02/01/20 14:36 97.6 F 67 16 139/87 98 02/01/20 14:05 15 139/87 02/01/20 14:03 15 145/101 02/01/20 13:58 18 02/01/20 13:35 14 128/80 02/01/20 13:11 97.6 F 69 16 140/84 98 - Laboratory Lab Statement: Any lab studies that have been ordered have been reviewed, and results considered in the medical decision making process. Lower Extremity Course/Dx - Course Course Of Treatment: Patient with a history of recurrent bilateral hip dislocations with a recent right hip revision several months ago presents to the ED with right hip dislocation. Right leg shortened, externally rotated. She denies any pain. Patient was given fentanyl 50 g with good effect. Apply traction to the right leg. Hip reduction successful. Patient is able to move the extremity. Patient states she will follow up with her surgeon in [place]. Denies any other complaints at this time. - Diagnoses Provider Diagnoses: Hip dislocation, right Discharge ED - Sign-Out/Discharge Documenting (check all that apply): Patient Departure - Discharge Plan Condition: Stable Disposition: HOME Referrals: Ирина Hess MD [Primary Care Provider] - Additional Instructions: Please call your surgeon to make them aware of the dislocation - Billing Disposition and Condition Condition: STABLE Disposition: Home
== END 2020-02-01 14:36 | disposition home or self-care (01) ==
LOC: ED 13:09
DX: S73.004A Unspecified dislocation of right hip, initial encounter (principal); X58.XXXA Exposure to other specified factors, initial encounter; Y93.89 Activity, other specified; Y92.009 Unspecified place in unspecified non-institutional (private) residence as the place of occurrence of the external cause; I10 Essential (primary) hypertension; Z79.899 Other long term (current) drug therapy; Z96.643 Presence of artificial hip joint, bilateral; Z88.1 Allergy status to other antibiotic agents; Z87.891 Personal history of nicotine dependence
CPT/HCPCS: 27250; 99282; J3010

== ENCOUNTER 2020-02-18 12:10 | Emergency (ER) | payer OTHER ==
[2020-02-18 12:20] VITALS: BP 140/86
--- OUTSIDE RECORDS SUMMARY | 2020-02-18 12:31 | XMS REPORT | Continuity of Care Document ---
:1955 External Reference #:[id number] Author Name Yolis Dennis M.D. (transmitted by agent of provider Cristal Martinez) Address [address] [place] [id number] Care Team Providers Name Role Phone Ирина Hess MD - Family Care Team Information Leather Carver [phone] Medicine Problems Active Problems Provider Date Prosthetic arthroplasty of the hip Sophia Valles M.D. Onset: 05/11/2019 Recurrent dislocation of hip Sophia Valles M.D. Onset: 05/11/2019 Social History Type Date Description Comments Sex Unknown ETOH Use Occasionally consumes alcohol Tobacco Use Start: Unknown End: Patient is a former smoker Unknown Smoking Status Reviewed: 02/10/20 Patient is a former smoker Exercise Type/Frequency Exercises regularly Allergies, Adverse Reactions, Alerts Active Allergies Reaction Severity Comments Date Keflex 05/11/2019 Medications Active Medications SIG Qnty Indications Ordering Date Provider Girdled Hip Brace Disp 1 girdled 1units Z96.641 Sophia Valles, 06/04/2019 hip brace Ht 65 M.D. Wt 143 Vitamin B12 once daily Other Ordering 05/11/2019 3000mcg Tablets Sub Provider Prolia one sc every 6 1ml Other Ordering 05/11/2019 60mg/ml Soln Prefill months Provider Syringe Raised Toilet Seat/Lock & use s/p r hip 1units Z96.641 Sophia Valles, 05/11 Arms dislocation M.D. Misc z96.641 64" 143 lbs Rolling Walker (Aj) use for 1units M25.551 Sophia Valles, 05/11/2019 ambulation M.D. dx:z96.641 64" 143 lbs Hydrochlorothiazide Unknown 25mg Tablets Venlafaxine HCL TK 2 TS PO In The Unknown 75mg Tablets Morning And 1 T In The Maggie Magnesium Oxide 400 Unknown Medications Administered in Office Medication SIG Qnty Indications Ordering Provider Date Depomedrol 40MG Yolis Dennis M.D. 02/10/2020 Injection Immunizations Description No Information Available Vital Signs Date Vital Result Comment 02/10/2020 10:11am Height 63 inches 5'3" Weight 147.75 lb Heart Rate 78 /min BP Systolic 128 mmHg BP Diastolic 74 mmHg Respiratory Rate 18 /min Pain Level 6 Right slightly worse O2 % BldC Oximetry 96 % BMI (Body Mass Index) 26.2 kg/m2 06/08/2019 3:44pm Height 63 inches 5'3" Weight 145.00 lb BP Systolic 142 mmHg BP Diastolic 82 mmHg Body Temperature 97.7 F BMI (Body Mass Index) 25.7 kg/m2 Results Description No Information Available Procedures Date Code Description Status 02/10/2020 96110 Inject/Drain Joint/Bursa Small W/O US Completed Medical Devices Description No Information Available Encounters Type Date Location Provider Dx Diagnosis Office Visit 02/10/2020 [facility] Yolis M18.0 Bilateral primary 10:00a at [facility] Dennis M.D. 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 carpometacarpal joint, right hand Plan of Treatment 02/10/2020 - Yolis Dennis M.D.M18.0 Bilateral primary osteoarthritis of first carpometacarpal [email or web address] Unilateral primary osteoarthritis of first carpometacarpal joint, right handFollow up:Follow up: As needed Functional Status Description No Information Available Mental Status Description No Information Available Referrals Description No Information Available
--- OUTSIDE RECORDS SUMMARY | 2020-02-18 12:31 | XMS REPORT | Continuity of Care Document ---
:1955 External Reference #:[id number] Author Name Yolis Dennis M.D. Address [address] [place] [address] Care Team Providers Name Role Phone Ирина Hess MD - Family Care Team Information Burglary Investigator [phone] Medicine Problems Active Problems Provider Date Prosthetic arthroplasty of the hip Sophia aVlles M.D. Onset: 05/11/2019 Recurrent dislocation of hip [...] In The Maggie Magnesium Oxide 400 Unknown Immunizations Description No Information Available Vital Signs [...] Available Procedures Date Code Description Status 02/10/2020 46409 Inject/Drain Joint/Bursa Small W/O US Completed Medical Devices Description No Information Available Encounters Type Date Location Provider Dx Diagnosis Office Visit 02/10/2020 [facility] Yolis M18.12 Unil primary 10:00a at Sakshi Dennis M.D. osteoarth of first carpometacarp joint, l hand M18.11 Unil primary osteoarth of first carpometacarp joint, r hand Assessments Date Code Description Provider 02/10/2020 M18.12 Unilateral primary osteoarthritis of first Yolis Dennis M.D. 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
--- NOTE | 2020-02-18 12:34 | ED ---
Lower Extremity - HPI Summary HPI Summary: Patient is a 64-year-old female presented to the ED with a possible right hip dislocation. She states this is her seventh hip dislocation total. This is her fifth dislocation to the right side and her last one was just 2 weeks ago. She is usually able to get her neighbors to apply traction to the leg which will reduce the hip. She states they tried this at home, however was unable to reduce it. Her previous dislocation in which she was seen in the emergency room was able to be reduced with a small dose of fentanyl. She is requesting this again. She denies any pain. She states this occurred when trying to put on shorts. She did not fall or cause any other injuries. Denies any numbness or tingling. Denies any color or temperature changes. 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 - History of Current Complaint Chief Complaint: EDHipPelvisInjury Stated Complaint: DISLOCATED HIP PER EMS Time Seen by Provider: 02/18/20 12:11 Hx Obtained From: Patient Onset of Pain: Minutes Onset/Duration: Minutes Severity Initially: Mild Severity Currently: None Pain Intensity: 0 Pain Scale Used: 0-10 Numeric Timing: Constant Location: Is Discrete @ - right hip Associated Signs And Symptoms: Negative: Swelling, Redness, Bruising Aggravating Factor(s): Standing Alleviating Factor(s): Rest - Allergies/Home Medications Allergies/Adverse Reactions: Allergies Allergy/AdvReac Type Severity Reaction Status Date / Time cephalexin [From Keflex] Allergy Rash Verified 05/26/19 12:36 Home Medications: Home Medications Hydrochlorothiazide TAB* [Hydrodiuril TAB*] 25 mg PO DAILY 05/01/19 [History Confirmed 05/26/19] Venlafaxine HCl 75 mg PO BID 05/01/19 [History Confirmed 05/26/19] PMH/Surg Hx/FS Hx/Imm Hx Previously Healthy: Yes Endocrine/Hematology History: Denies: Hx Anticoagulant Therapy Cardiovascular History: Reports: Hx Hypertension History: Denies: Hx Dialysis Musculoskeletal History: Reports: Other Musculoskeletal History - hip dysplasia ; multiple hip surgeries Sensory History: Denies: Hx Eye Prosthesis, Hx Legally Blind Opthamlomology History: Denies: Hx Eye Prosthesis, Hx Legally Blind Neurological History: Denies: Hx Dementia Psychiatric History: Denies: Hx Autism - Surgical History Surgery Procedure, Year, and Place: BILAT HIP REPLACEMENTS - Immunization History Hx Pertussis Vaccination: No Immunizations Up to Date: Yes Infectious Disease History: No Infectious Disease History: Denies: Traveled Outside the [place] in Last 30 Days - Family History Known Family History: Positive: None - Pt denies family history when asked., Unknown - Pt denies family history when asked. Negative: Hypertension, Diabetes - Social History Occupation: Unemployed Lives: Alone Alcohol Use: Occasionally Hx Substance Use: No Substance Use Type: Reports: None Hx Tobacco Use: No Smoking Status (MU): Former Smoker Review of Systems Negative: Fever, Chills, Fatigue, Skin Diaphoresis Negative: Palpitations, Chest Pain Negative: Shortness Of Breath, Cough Genitourinary: Negative Positive: no symptoms reported, see HPI Positive: Arthralgia - right hip Negative: Rash, Bruising Positive: Headache All Other Systems Reviewed And Are Negative: Yes Physical Exam Triage Information Reviewed: Yes Vital Signs On Initial Exam: Initial Vitals Temp Pulse Resp BP Pulse Ox 98.3 F 74 18 140/86 97 02/18/20 12:12 02/18/20 12:12 02/18/20 12:12 02/18/20 12:12 02/18/20 12:12 Vital Signs Reviewed: Yes Appearance: Positive: Well-Appearing, No Pain Distress, Well-Nourished Skin: Positive: Warm, Skin Color Reflects Adequate Perfusion Head/Face: Positive: Normal Head/Face Inspection Eyes: Positive: EOMI, LORI, Conjunctiva Clear Neck: Positive: Supple, No Lymphadenopathy Respiratory/Lung Sounds: Positive: Clear to Auscultation, Breath Sounds Present Cardiovascular: Positive: RRR, Pulses are Symmetrical in both Upper and Lower Extremities Musculoskeletal: Positive: Pain @ - right hip Neurological: Positive: Sensory/Motor Intact, Speech Normal Psychiatric: Positive: Affect/Mood Appropriate Procedures - Sedation Patient Received Moderate/Deep Sedation with Procedure: No Diagnostics - Vital Signs Vital Signs Temp Pulse Resp BP Pulse Ox 02/18/20 12:28 98.3 F 74 16 140/86 98 02/18/20 12:12 98.3 F 74 18 140/86 97 - Laboratory Lab Statement: Any lab studies that have been ordered have been reviewed, and results considered in the medical decision making process. Lower Extremity Course/Dx - Course Course Of Treatment: Pt did not require sedation. Applied traction and internal rotation to the R leg and hip was relocated on physical exam. - Diagnoses Provider Diagnoses: Hip dislocation, right Discharge ED - Sign-Out/Discharge Documenting (check all that apply): Patient Departure - Discharge Plan Condition: Stable Disposition: HOME Referrals: Ирина Hess MD [Primary Care Provider] - - Billing Disposition and Condition Condition: STABLE Disposition: Home - Attestation Statements Provider Attestation: I was available for consult. This patient was seen by the [facility]. The patient was not presented to, seen by, or examined by me. Kuldeep Andrew MD
== END 2020-02-18 12:28 | disposition home or self-care (01) ==
LOC: ED 12:10
DX: S73.004A Unspecified dislocation of right hip, initial encounter (principal); T84.020A Dislocation of internal right hip prosthesis, initial encounter; X58.XXXA Exposure to other specified factors, initial encounter; Y92.9 Unspecified place or not applicable; Z96.643 Presence of artificial hip joint, bilateral; Z79.899 Other long term (current) drug therapy; Z88.8 Allergy status to other drugs, medicaments and biological substances; Z87.891 Personal history of nicotine dependence
CPT/HCPCS: 99281

== ENCOUNTER 2023-01-29 10:22 | Inpatient (IN) ==
[2023-01-29] MEDS ORDERED: Lidocaine 1% MPF 5 ML VIAL ONE (15:26)
[2023-01-29] MEDS ORDERED: Cefepime 2 GM in Dextrose 2 GM/50 ML BAG IV ONE (16:03)
[2023-01-29] MEDS ORDERED: Vancomycin 1,250 MG in NS 0.9% 250 ml 250 ML IVPB ONE (16:03)
[2023-01-29] MEDS ORDERED: Lactulose 30 ml UDC PO PRN (16:28)
[2023-01-29] MEDS ORDERED: Ondansetron 4 mg VIAL 2 MG/ML 2 ml VIAL IV PRN (16:28)
[2023-01-29] MEDS ORDERED: Ondansetron ODT 4 mg TAB 4 MG TAB PO PRN (16:28)
[2023-01-29] MEDS ORDERED: Morphine 2 MG/ML SYRINGE IV PRN (16:28)
[2023-01-29] MEDS ORDERED: Magnesium Hydroxide LIQ 30 ML UDC PO PRN (16:28)
[2023-01-29] MEDS ORDERED: Vancomycin per Pharmacy 1 EA NOTE FOLLOW UP SCH (17:00)
[2023-01-29 17:50] LABS: ABS Basophils 0.1 10^3/ul (0-0.2); ABS Eosinophils 0.3 10^3/ul (0-0.6); ABS Lymphocytes 1.9 10^3/ul (1.0-4.8); ABS Monocytes 0.6 10^3/ul (0-0.8); ABS Neutrophils 5.3 10^3/ul (1.5-7.7); Eosinophil % 3.5 %; Hematocrit 39 % (35-47); Lymphocyte % 23.5 %; Mean Corpuscular HGB Conc 34 g/dL (31-36); Mean Corpuscular Hemoglobin 31 pg (27-31); Mean Corpuscular Volume 93 fL (80-97); Mean Platelet Volume 7.6 fL (7.4-10.4); Platelet Count 324 10^3/uL (150-450); Red Blood Count 4.17 10^6 /uL (3.70-4.87); Red Cell Distribution Width 13 % (10-15); White Blood Count 8.2 10^3/uL (3.5-10.8)
[2023-01-29 18:08] LABS: Activated Partial Thrombo Time 35.8 seconds (26.0-38.0); INR 1.17 (0.88-1.18)
[2023-01-29 18:18] LABS: Albumin 3.9 g/dL (3.2-5.2); Albumin/Globulin Ratio 1.6 (1-3); C Reactive Protein 88.09 mg/L (<8.01); Creatinine, Serum 0.41 mg/dL (0.51-0.95); Globulin 2.5 g/dL (2-4); Potassium 3.6 mmol/L (3.5-5.0); Total Bilirubin 0.5 mg/dL (0.2-1.0); Total Protein 6.4 g/dL (6.4-8.9); eGFR CKD-EPI 108.4 (>60)
[2023-01-29] MEDS: Magnesium Hydroxide LIQ 30 ML UDC PO SCH (23:03)
[2023-01-29] MEDS: Heparin 5000 UNITS/ML 1 mL VIAL SUBCUT SCH (23:04)
[2023-01-29] MEDS: Venlafaxine XR 75 mg PO SCH (23:04)
[2023-01-30] MEDS: CEFEPIME 2 GM in Dextrose 50 mL IV SCH ×3 (02:33→18:09)
[2023-01-30] MEDS: Vancomycin 1000 MG in NS 0.9% 250 ML IVPB SCH ×3 (02:53→18:52)
[2023-01-30 06:14] LABS: Hematocrit 35 % (35-47); Hemoglobin 12.4 g/dL (12.0-16.0); Mean Platelet Volume 7.2 fL (7.4-10.4); Platelet Count 318 10^3/uL (150-450)
[2023-01-30 06:48] LABS: C Reactive Protein 70.97 mg/L (<8.01); Calcium 9.2 mg/dL (8.6-10.3); Creatinine, Serum 0.41 mg/dL (0.51-0.95); Potassium 4.2 mmol/L (3.5-5.0); eGFR CKD-EPI 108.4 (>60)
[2023-01-30] MEDS ORDERED: Potassium Chlor 10 meq TAB PO SCH (09:00)
[2023-01-30] MEDS ORDERED: ceFAZolin 1 GM ADVAN 1 GM in NS 0.9% 50 ML 50 ML IVPB SCH (09:00)
[2023-01-30] MEDS: Magnesium Hydroxide LIQ 30 ML UDC PO SCH ×2 (10:58→20:32)
[2023-01-30] MEDS: Vitamin THERAPEUTIC TAB PO SCH (10:58)
[2023-01-30] MEDS: Potassium Chlor 10 meq TAB PO SCH (10:58)
[2023-01-30] MEDS: Heparin 5000 UNITS/ML 1 mL VIAL SUBCUT SCH ×2 (10:58→20:32)
[2023-01-30] MEDS: Venlafaxine XR 75 mg PO SCH ×2 (10:58→20:31)
[2023-01-30] MEDS ORDERED: Vancomycin Trough Check NOTE FOLLOW UP ONE (17:30)
[2023-01-31] MEDS: CEFEPIME 2 GM in Dextrose 50 mL IV SCH ×2 (02:15→10:22)
[2023-01-31] MEDS: Vancomycin 1000 MG in NS 0.9% 250 ML IVPB SCH ×3 (03:07→18:56)
[2023-01-31 06:01] LABS: Hematocrit 37 % (35-47); Hemoglobin 12.6 g/dL (12.0-16.0); Mean Corpuscular HGB Conc 34 g/dL (31-36); Mean Corpuscular Hemoglobin 31 pg (27-31); Mean Corpuscular Volume 92 fL (80-97); Mean Platelet Volume 7.2 fL (7.4-10.4); Platelet Count 338 10^3/uL (150-450); Red Blood Count 4.03 10^6 /uL (3.70-4.87); Red Cell Distribution Width 13 % (10-15); White Blood Count 6.2 10^3/uL (3.5-10.8)
[2023-01-31 09:01] LABS: ABS Basophils 0.1 10^3/ul (0-0.2); ABS Eosinophils 0.4 10^3/ul (0-0.6); ABS Monocytes 0.7 10^3/ul (0-0.8); ABS Neutrophils 2.9 10^3/ul (1.5-7.7); Eosinophil % 7.2 %; Lymphocyte % 31.9 %; Nucleated Red Blood Cells % 0.1; RBC Morphology Normal (Normal)
[2023-01-31] MEDS: Magnesium Hydroxide LIQ 30 ML UDC PO SCH ×2 (12:24→21:01)
[2023-01-31] MEDS: Potassium Chlor 10 meq TAB PO SCH ×2 (12:24→13:25)
[2023-01-31] MEDS: Venlafaxine XR 75 mg PO SCH ×3 (12:25→21:00)
[2023-01-31] MEDS: Vitamin THERAPEUTIC TAB PO SCH ×2 (12:25→13:25)
[2023-01-31] MEDS ORDERED: Vancomycin per Pharmacy 1 EA NOTE FOLLOW UP SCH (13:00)
[2023-01-31] MEDS ORDERED: Venlafaxine 25 mg TAB (NF) ONE (13:14)
[2023-01-31 15:42] LABS: Hematocrit 36 % (35-47); Hemoglobin 12.5 g/dL (12.0-16.0); Mean Corpuscular HGB Conc 35 g/dL (31-36); Mean Corpuscular Hemoglobin 32 pg (27-31); Mean Corpuscular Volume 92 fL (80-97); Mean Platelet Volume 6.9 fL (7.4-10.4); Platelet Count 353 10^3/uL (150-450); Red Blood Count 3.87 10^6 /uL (3.70-4.87); Red Cell Distribution Width 13 % (10-15); White Blood Count 7.7 10^3/uL (3.5-10.8)
[2023-01-31 15:49] LABS: ABS Basophils 0.1 10^3/ul (0-0.2); ABS Eosinophils 0.4 10^3/ul (0-0.6); ABS Monocytes 0.8 10^3/ul (0-0.8); ABS Neutrophils 4.4 10^3/ul (1.5-7.7); Lymphocyte % 25.9 %
[2023-01-31 15:55] LABS: Activated Partial Thrombo Time 33.2 seconds (26.0-38.0); INR 1.2 (0.88-1.18)
[2023-01-31 16:39] LABS: Creatinine, Serum 0.43 mg/dL (0.51-0.95); eGFR CKD-EPI 107.2 (>60)
[2023-01-31] MEDS ORDERED: cefTRIAXone 2 gm/50 mL D5W 2 GM/50 ML BAG IV SCH (18:00)
[2023-01-31] MEDS: Heparin 5000 UNITS/ML 1 mL VIAL SUBCUT SCH (21:00)
[2023-02-01] MEDS: Vancomycin 1000 MG in NS 0.9% 250 ML IVPB SCH ×2 (02:25→09:49)
[2023-02-01 06:44] LABS: Hematocrit 37 % (35-47); Hemoglobin 12.8 g/dL (12.0-16.0); Mean Corpuscular HGB Conc 34 g/dL (31-36); Mean Corpuscular Hemoglobin 32 pg (27-31); Mean Corpuscular Volume 93 fL (80-97); Mean Platelet Volume 7.3 fL (7.4-10.4); Platelet Count 370 10^3/uL (150-450); Red Blood Count 4.01 10^6 /uL (3.70-4.87); Red Cell Distribution Width 13 % (10-15); White Blood Count 5.7 10^3/uL (3.5-10.8)
[2023-02-01] MEDS: Magnesium Hydroxide LIQ 30 ML UDC PO SCH (07:27)
[2023-02-01] MEDS: Vitamin THERAPEUTIC TAB PO SCH (07:27)
[2023-02-01] MEDS: Potassium Chlor 10 meq TAB PO SCH ×2 (07:28→09:46)
[2023-02-01 08:59] VITALS: BP 148/89
[2023-02-01 09:12] LABS: RBC Morphology Normal (Normal)
[2023-02-01 09:13] LABS: ABS Basophils 0.1 10^3/ul (0-0.2); ABS Eosinophils 0.4 10^3/ul (0-0.6); ABS Lymphocytes 1.7 10^3/ul (1.0-4.8); ABS Monocytes 0.5 10^3/ul (0-0.8); Eosinophil % 7.2 %; Lymphocyte % 29.2 %
[2023-02-01] MEDS ORDERED: Vancomycin Trough Check NOTE FOLLOW UP ONE (09:30)
[2023-02-01] MEDS: Venlafaxine XR 75 mg PO SCH (09:45)
[2023-02-01] MEDS: Heparin 5000 UNITS/ML 1 mL VIAL SUBCUT SCH (09:46)
[2023-02-01 10:05] LABS: Creatinine, Serum 0.42 mg/dL (0.51-0.95); Vancomycin Trough 18.3 mcg/mL; eGFR CKD-EPI 107.8 (>60)
== END 2023-02-01 12:05 | disposition home or self-care (01) | DRG 603 ==
LOC: ED 10:22 → EDHOLD 16:50 → INTOOBSV 16:50 → EDHOLD 22:14 → SSU 01-30 14:30
PROVIDERS: ADMIT Orthopaedic Surgery; ATTEND Orthopaedic Surgery